=== PATIENT | female | born 1940 | race Caucasian/White ===

== ENCOUNTER 2016-12-12 19:06 | Emergency (ER) | payer MEDICARE, OTHER ==
--- NOTE | 2016-12-12 19:31 | Emergency Department Record ---
History of Present Illness - General Chief Complaint: Shortness of breath Stated Complaint: LARRY,COUGH,FEVER, Time Seen by Provider: 12/12/16 19:25 Source: Patient Mode of Arrival: Ambulatory Limitations: No limitations - History of Present Illness Initial Comments: 76 yo female presents to ED with a 2-week history of cough, fever, and post- tussive vomiting symptoms which do not seem to be improving. Patient denies health problems at her baseline, and reports that her symptoms have not improved with OTC medications at home. Patient denies urinary symptoms, abdominal pain, or flank pain symptoms. MD Complaint: Cough Onset/Timin -: Week(s) Severity: Moderate Consistency: Intermittent Improves With: Nothing Worsens With: Inspiration Context: Recent URI Associated Symptoms: Fever, Nausea/vomiting - Related Data Home Oxygen Therapy: No Home Medications Medication Instructions Recorded Confirmed Last Taken Lisinopril [Zestril] 10 mg PO DAILY 12/12/16 12/12/16 12/11/16 Lovastatin 40 mg PO QHS 12/12/16 12/12/16 12/11/16 Metoprolol Tartrate 100 mg PO DAILY 12/12/16 12/12/16 12/11/16 Previous Rx's Medication Instructions Recorded Azithromycin [Zithromax] 250 mg PO DAILY #6 tab 12/12/16 Promethazine HCl/Codeine 5 - 10 ml PO .AT BEDTIME PRN #118 12/12/16 [Phenergan W/Codeine] ml Allergies Allergy/AdvReac Type Severity Reaction Status Date / Time Sulfa (Sulfonamide Allergy RASH Verified 12/12/16 19:18 Antibiotics) Review of Systems Constitutional: Reports: Fever, Malaise. Denies: Chills Eyes: Denies: Eye discharge, Eye pain ENT: Reports: Congestion. Denies: Ear pain, Epistaxis Respiratory: Reports: Cough. Denies: Dyspnea, Hemoptysis Cardiovascular: Denies: Chest pain, Dyspnea on exertion, Edema Endocrine: Denies: Fatigue, Heat or cold intolerance Gastrointestinal: Reports: Nausea, Vomiting. Denies: Abdominal pain Genitourinary: Denies: Incontinence, Retention Musculoskeletal: Denies: Arthralgia, Back pain, Gout, Joint swelling Skin: Denies: Bruising, Change in color Neurological: Denies: Abnormal gait, Confusion, Headache, Seizure Psychiatric: Denies: Anxiety Hematological/Lymphatic: Denies: Anemia, Blood Clots Physical Exam - General General Appearance: Alert, Oriented x3, Cooperative, Moderate distress Limitations: No limitations - Head Head exam: Atraumatic, Normocephalic, Normal inspection Head exam detail: negative: Abrasion, Contusion, Simeon's sign, General tenderness, Hematoma, Laceration - Eye Eye exam: Normal appearance. negative: Conjunctival injection, Periorbital swelling, Periorbital tenderness, Scleral icterus - ENT Ear exam: negative: Auricular hematoma, Auricular trauma Nasal Exam: negative: Active bleeding, Discharge, Dried blood, Foreign body Mouth exam: negative: Drooling, Laceration, Muffled voice, Tongue elevation - Neck Neck exam: Normal inspection. negative: Meningismus, Tenderness - Respiratory Respiratory exam: Normal lung sounds bilaterally. negative: Rales, Respiratory distress, Rhonchi, Stridor - Cardiovascular Cardiovascular Exam: Regular rate, Normal rhythm, Normal heart sounds - GI/Abdominal GI/Abdominal exam: Soft. negative: Rebound, Rigid, Tenderness - Rectal Rectal exam: Deferred - exam: Deferred - Extremities Extremities exam: Normal inspection. negative: Calf tenderness, Pedal edema, Tenderness - Back Back exam: Denies: CVA tenderness (R), CVA tenderness (L) - Neurological Neurological exam: Alert, Normal gait, Oriented X3 - Psychiatric Psychiatric exam: Normal affect, Normal mood - Skin Skin exam: Normal color. negative: Abrasion Type of lesion: negative: abrasion Course - Reevaluation(s) Reevaluation #1: 12/12/16 20:17 Labs reviewed, WBC 16.3, 85% Neutrophils. Labs are otherwise grossly unremarkable for an acute process. CXR: RLL infiltrate. Rocephin infusing, Zithromax 500 mg given orally. Medical Decision Making - Lab Data Result diagrams: 12/12/16 19:38 12/12/16 19:38 Disposition Disposition: Discharge Clinical Impression: CAP (community acquired pneumonia) Qualifiers: Laterality: right Lung location: lower lobe of lung Qualified Code(s): J18.1 - Lobar pneumonia, unspecified organism Disposition: Home, Self-Care Condition: (2) Stable Instructions: Community Acquired Pneumonia (ED) Additional Instructions: Return to ED if your symptoms worsen or if you have any concerns. Zithromax as directed. Follow-up with your family doctor doctor in 3-5 days as directed. Prescriptions: Azithromycin [Zithromax] 250 mg PO DAILY #6 tab Promethazine HCl/Codeine [Phenergan W/Codeine] 5 - 10 ml PO .AT BEDTIME PRN # 118 ml PRN Reason: Cough Forms: Patient Portal Access Time of Disposition: 20:18 Quality - Quality Measures Quality Measures: N/A - Blood Pressure Screening Does Patient Have Any of the Following: Active Dx of HTN Blood Pressure Classification: Hypertensive Reading Systolic Measurement: 205 Diastolic Measurement: 91 Screening for High Blood Pressure: Patient Exclusion, Hx of HTN [[id number]]
[2016-12-12] MEDS: 0.9 % SODIUM CHLORIDE 1000ML 1,000 ML IV SCH (19:40)
[2016-12-12 19:47] LABS: BASO % 0.2 % (0-6); EOS % 0.3 % (0-6); HEMATOCRIT 34.7 % (35.0-47.0); HEMOGLOBIN 11.8 gm/dl (11.6-16.0); LYMPH % 4.6 % (16-45); MEAN CELL VOLUME 90.6 fl (81-97); MEAN CORPUSCULAR HEMOGLOBIN 30.8 pg (27-33); MEAN PLATELET VOLUME 9.2 fl (7.4-10.4); MONO % 7.8 % (0-9); PLATELET COUNT 239 K/uL (130-400); RED BLOOD COUNT 3.83 M/uL (3.80-5.40); WHITE BLOOD COUNT W/O DIFF 16.3 K/uL (4.2-12.2)
[2016-12-12] MEDS: ONDANSETRON HCL IV 4 MG/2 ML VIAL IVP ONE (19:59)
[2016-12-12 20:01] LABS: INFLUENZA A NEGATIVE (NEGATIVE); INFLUENZA B NEGATIVE (NEGATIVE)
[2016-12-12 20:05] LABS: ALB/GLOB RATIO 1.3 (1.1-1.8); ALBUMIN 4.1 g/dL (4.0-5.0); ALKALINE PHOSPHATASE 84 U/L (35-104); ALT/SGPT 9 U/L (<33); AST/SGOT 16 U/L (10.0-35.0); BLOOD UREA NITROGEN 16 mg/dL (8-23); CREATININE 0.9 mg/dL (0.5-0.9); EST GLOMERULAR FILTRATION RATE > 60 mL/min; GLUCOSE,RANDOM 177 mg/dL (74-109); TOTAL PROTEIN 7.3 g/dL (6.6-8.7)
[2016-12-12] MEDS: CEFTRIAXONE SODIUM 1 GM in 0.9 % SODIUM CHLORIDE 100ML 100 ML IVPB ONE (20:07)
[2016-12-12] MEDS: AZITHROMYCIN 500 MG TABLET PO ONE (20:08)
[2016-12-12] MEDS: KETOROLAC 30 MG/ML VIAL IVP ONE (20:08)
[2016-12-12] MEDS: PROMETHAZINE W/CODEINE 10ML UD PO ONE (21:16)
== END 2016-12-12 21:23 | disposition home or self-care (01) ==
LOC: ER 19:06
DX: J18.1 Lobar pneumonia, unspecified organism (principal); R06.02 Shortness of breath; R11.2 Nausea with vomiting, unspecified; R50.81 Fever presenting with conditions classified elsewhere
CPT/HCPCS: 99284 ×2; 96365; 96375; 96361; 80053; 87400; 85027; 71020; J2405; J7030